=== PATIENT | male | born 1960 ===

== ENCOUNTER 2019-02-11 10:42 | Outpatient (CLI) | payer OTHER ==
[~2019-02-11 10:42] MED LIST: COZAAR50 MG
== END 2019-02-11 10:51 | disposition home or self-care (01) ==
LOC: RAD 10:42
DX: Z01.810 Encounter for preprocedural cardiovascular examination (principal)

== ENCOUNTER 2019-02-24 08:06 | Day surgery (SDC) | payer OTHER | END 2019-02-24 16:30 | disposition home or self-care (01) | LOC: CIR.AMB 08:06 | DX: M72.0 Palmar fascial fibromatosis [Dupuytren] (principal) ==